=== PATIENT | male | born 1935 | race Caucasian/White ===

== ENCOUNTER 2019-01-28 11:13 | Inpatient (IN) | payer MEDICARE ==
[~2019-01-28] VITALS: Ht 182.9 cm; Wt 106.2 kg
[2019-01-28] VITALS (26 sets, daily range): BP systolic 99–185; BP diastolic 48–90
--- NOTE | ~2019-01-28 | TEE ---
PATIENT:JACI GOMEZ MEDICAL RECORD: [id number] LOCATION:[place] [address] AGE OF PATIENT: 83 ADMISSION DATE: 01/28/19 SEX: M REFERRING PHYSICIAN: INTERPRETING PHYSICIAN: HARLEEN BAZAN MD TRANSESOPHAGEAL ECHOCARDIOGRAM Date: 01/29/19 SHANTHI CHARGE Y INDICATIONS: MR PREMEDICATIONS: PATIENT'S RESPONSE PROCEDURE DOPPLER MEASUREMENTS: LVIT LA PA 100 RA LVOT 121 RVOT 71 Asc. Ao 166 AV Gradient Peak 11.1 AV Mean 5.3 AV Area 2.4 MV Gradient Peak 3.8 MV Mean 2.2 MV Area INTERPRETATION: Doppler: 2-D: COLOR FLOW DOPPLER NORMAL SALINE STUDY: MISCELLANOUS: DIAGNOSIS: PLAN: Farm Equipment Operator:Jonatan Terrell Almond Blancher: Nishant VALDES COMMENTS: DATE OF SERVICE: FINDINGS: 1. Left ventricular chamber size is within normal limits. Left ventricular systolic function is normal. Overall ejection fraction estimated at 55% to 60%. 2. Left atrium, right atrium and right ventricular chamber sizes are within normal limits. 3. Valvular structures have normal structure and motion. 4. Doppler interrogation reveals mild mitral regurgitation, no other valvular TRANSESOPHAGEAL ECHOCARDIOGRAM REPORT [id number] JACI GOMEZ insufficiency or stenosis. 5. No evidence of pericardial effusion or left ventricular thrombus. TRANSINT:[id number] Voice Confirmation ID: [id number] DOCUMENT ID: [id number] HARLEEN BAZAN MD CC: [id number] DICTATION DATE: 01/30/19 1448 MANAGER REGISTRATION: 01/30/19 2348 DIS IN 01/30/19 [place] [id number] [place] [id number]
[2019-01-28] MEDS ORDERED: HYDROCODON-ACE1 EAC7 PO (11:30)
--- NOTE | 2019-01-28 12:48 | NUR ---
PT BACK TO ED NOW, PT WAS TAKEN TO MEDICAL IMAGING FOR ORDERED XRAYS.
--- NOTE | 2019-01-28 13:42 | NUR ---
PT LEAVING THE ED VIA STRETCHER FOR MEDICAL IMAGING DEPT.
[2019-01-28 13:48] LABS: BASOPHILS 1.2 % (0-2); EOSINOPHILS 5.4 % (0-7); HEMATOCRIT 45.2 % (42.0-54.0); HEMOGLOBIN 15.9 g/dL (13.5-17.5); IMMATURE GRANULOCYTES 0.3 % (0-5); LYMPHOCYTES 41.4 % (15-50); MCH 36.3 pg (26.0-34.0); MCHC 35.2 g/dL (31.0-37.0); MCV 103.2 fL (80.0-100.0); MEAN PLATELET VOLUME 9.7 fL (7.4-10.4); MONOCYTES 13.5 % (2-11); NEUTROPHILS 38.2 % (40-80); PLATELET COUNT 251 10x3/uL (130-400); RBC 4.38 10x6/uL (4.20-6.10); WBC 9.9 10x3/uL (4.8-10.8)
[2019-01-28 14:10] LABS: APTT 27.5 SECONDS (22.8-39.4); INR 1.07 (0.85-1.17); PROTIME 13.4 SECONDS (11.6-15.0)
[2019-01-28 14:15] LABS: ALBUMIN 3.6 g/dL (3.4-5.0); ALKALINE PHOSPHATASE 70 U/L (46-116); ALT (SGPT) 22 U/L (10-68); BILIRUBIN - TOTAL 1.33 mg/dL (0.2-1.3); CALC OSMOLALITY 271 mosm/kg (275-300); CALCIUM 9.4 mg/dL (8.5-10.1); CARBON DIOXIDE 25.3 mmol/L (21.0-32.0); CHLORIDE - SERUM 100 mmol/L (98-107); GLUCOSE 89 mg/dL (74-106); POTASSIUM - SERUM 4.5 mmol/L (3.5-5.1); PROTEIN - SERUM 8.2 g/dL (6.4-8.2); SODIUM 136 mmol/L (136-145); UREA NITROGEN 16 mg/dL (7-18); eGFR NON AFRICAN AMERICAN 76 mL/min (90-120)
[2019-01-28 16:12] LABS: APPEARANCE CLEAR (CLEAR); BILIRUBIN NEGATIVE (NEGATIVE); COLOR YELLOW (YELLOW); GLUCOSE NEGATIVE (NEGATIVE); KETONE NEGATIVE (NEGATIVE); NITRITE NEGATIVE (NEGATIVE); PROTEIN NEGATIVE (NEGATIVE); SPECIFIC GRAVITY 1.015 (1.005-1.020); UROBILINOGEN NORMAL (NORMAL)
--- NOTE | 2019-01-28 18:33 | NUR ---
NITROGLYCERIN INITIATED AT THIS TIME PER ORDERS.
--- NOTE | 2019-01-28 18:41 | NUR ---
PT BP 170'S. PRIMARY WAS CALLED, DEFERRED TO DR SANCHEZ. DR SANCHEZ GAVE ORDER FOR NITRO TITRATE BP UNDER 140. AND PO LOPRESSOR 25MG Q12H.
--- NOTE | 2019-01-28 19:25 | NUR ---
PT RECEIVED WITH EYES OPEN WATCHING TV. NO S/S OF DISTRESS. RECEIVING NITRO AT 60MCG/MIN WITH SBP >140 AND TRENDING DOWN. PT COMPLAINS OF BLOOD PRESSURE CUFF AND EDUCATED WHY IT IS ON AND FREQUENCY OF CHECKS, PT STATES UNDERSTANDING. PT NOTED TO URINATED ON FLOOR, WITH AREA CLEANED PER PROTOCOL, URINAL PROVIDED. CALL LIGHT IN REACH. WILL CONTINUE TO OBSERVE.
--- NOTE | 2019-01-28 22:23 | NUR ---
CAROTID DOPPLER COMPLETED. PT REQUEST WATER WITH WATER GIVEN. WILL CONTINUE TO OBSERVE. CALL LIGHT IN REACH.
--- NOTE | 2019-01-28 23:45 | NUR ---
REASSESSMENT COMPLETED, SEE FLOW SHEET. WILL CONTINUE TO OBSERVE
[2019-01-29] VITALS (37 sets, daily range): BP systolic 89–141; BP diastolic 35–74; Ht 182.9 cm; Wt 106.2 kg
--- NOTE | 2019-01-29 04:05 | NUR ---
REASSESSMENT COMPLETED, SEE FLOW SHEET. PT WOKE CONFUSED TO PLACE, TIME, AND SITUATION. STATES REMBERING WHEN REMINDED, BUT STILL CONFUSED. PT THINKS HE WAS HAVING A DREAM BUT UNSURE. IN BED WITH EYES OPEN WATCHING TV. CALL LIGHT IN REACH. WILL CONTINUE TO OBSERVE.
[2019-01-29 04:41] LABS: BASOPHILS 0.1 % (0-2); EOSINOPHILS 0 % (0-7); HEMATOCRIT 41.8 % (42.0-54.0); HEMOGLOBIN 14.7 g/dL (13.5-17.5); IMMATURE GRANULOCYTES 0.1 % (0-5); LYMPHOCYTES 17.2 % (15-50); MCH 35.8 pg (26.0-34.0); MCHC 35.2 g/dL (31.0-37.0); MCV 101.7 fL (80.0-100.0); MEAN PLATELET VOLUME 9.9 fL (7.4-10.4); MONOCYTES 4.3 % (2-11); NEUTROPHILS 78.3 % (40-80); PLATELET COUNT 279 10x3/uL (130-400); RBC 4.11 10x6/uL (4.20-6.10); RDW 12.8 % (11.5-14.5); WBC 9.5 10x3/uL (4.8-10.8)
[2019-01-29 04:53] LABS: ALBUMIN 3.2 g/dL (3.4-5.0); ANION GAP 12.8 mmol/L (8-16); BILIRUBIN - TOTAL 0.97 mg/dL (0.2-1.3); CALCIUM 9.4 mg/dL (8.5-10.1); CARBON DIOXIDE 25.5 mmol/L (21.0-32.0); CREATININE - SERUM 1.1 mg/dL (0.6-1.3); POTASSIUM - SERUM 4.3 mmol/L (3.5-5.1); PROTEIN - SERUM 7.7 g/dL (6.4-8.2)
--- NOTE | 2019-01-29 06:40 | NUR ---
CHG BATH GIVEN, TOLERATED WELL. WATCHING TV. NO NEEDS OR CONCERNS NOTED. CALL LIGHT IN REACH. WILL CONTINUE TO OBSERVE
--- NOTE | 2019-01-29 07:00 | NUR ---
SHIFT REPORT RECEIVED. PT RESTING COMFORTABLY IN BED. ON ROOM AIR. 18G PIV ON R-WRIST SALINE LOC. DENIES PAIN AT THIS TIME. COMPLETE ASSESSMENT CHARTED IN FLOWSHEET. WILL CONTINUE TO MONITOR.
--- NOTE | 2019-01-29 08:40 | NUR ---
CONSENT FORMS SIGNED FOR SCHEDULED PROCEDURE. SPOUSE AND DAUGHTER AT BEDSIDE. CONSENT FORMS PLACED IN CHART.
--- NOTE | 2019-01-29 09:30 | NUR ---
DR. NASSAR AT BEDSIDE. RENY PAULINO WITH CARDIOLOGY CAME TO SEE PATIENT. SHE SAID SHE WILL BE BACK LATER TODAY.
[2019-01-29 09:36] LABS: INR 1.08 (0.85-1.17); PROTIME 13.5 SECONDS (11.6-15.0)
--- NOTE | 2019-01-29 10:11 | NUR ---
PREOP MEDS GIVEN. PT RESTING COMFORTABLY. FAMILY AT BEDSIDE.
--- NOTE | 2019-01-29 11:00 | NUR ---
PT TRANSPORTED TO OR AT THIS TIME BY HOSPITAL STAFF. SPOUSE AND DAUGHTER IN WAITING ROOM.
--- NOTE | 2019-01-29 15:17 | NUR ---
PT ARRIVED TO UNIT AROUND 1453 FROM OR. PT WAS AGITATED AND CONFUSED. NURSING STAFF ATTEMPTED TO REDIRECT. IN PROCESS OF GETTING PT TO CALM DOWN, A-LINE WAS PULLED OUT. DR. SANCHEZ ORDER TO TITRATE DRIPS BY BLOOD PRESSURE CUFF READINGS. CURRENTLY HAS RIJ WITH PLASMOLYTE AT 100ML/HR, CLEVIPREX AT 4MG/HR, NITROGLYCERIN AT 33.33MCG/MIN. CURRENTLY ON 14L OF 02 VIA SIMPLE MASK. RIGHT GROIN DRESSING CDI. NO HEMATOMA OR BLEEDING NOTED. LEFT GROIN ANGIO SEAL IN PLACE. DRESSING CDI NO BLEEDING OR HEMATOMA NOTED. DOTY IN PLACE WITH YELLOW URINE NOTED. WILL CONTINUE TO MONITOR.
--- NOTE | 2019-01-29 17:18 | NUR ---
DANGLED ON SIDE OF BED FOR ABOUT 10MIN. TOLERATED WELL. NO BLEEDING OR HEMATOMAS NOTED ON RIGHT AND LEFT GROIN. DRESSINGS C/D/I. O2SAT 100% ON 2L. TURNED OXYGEN OFF AT THIS TIME. PULLS BETWEEN [phone] ON INSENTIVE SPIROMETER. WILL CONTINUE TO MONITOR.
--- NOTE | 2019-01-29 18:14 | NUR ---
UPDATED DR. SANCHEZ ON PT PROGRESS. ORDERED TO DC LOPRESSOR 25MG. ADDED LOPRESSOR 12.5 BID.
--- NOTE | 2019-01-29 19:40 | NUR ---
REPORT REC'D AND CARE ASSUMED, PT RESTING IN BED WATCHING TV, PT ON ROOM AIR , O2 SAT 97%, PT REQUESTING BP CUFF BE REPOSITIONED, CUFF READJUSTED FOR COMFORT, RIJ CVL DRSG CDI WITH PLASMALYTE @ 100CC/HR, NITROGLYCERIN, AND CLEVIPREX ON HOLD, BILAT GROIN DRSGS CDI, NO BLEEDING OR HEMATOMA NOTED, PT DENIES PAIN AT THIS TIME, CRITICORE DOTY PATENT DRAINING YELLOW URINE, BILAT TEDS AND SCDS ON, PPP, SR UP X 2, CALL LIGHT IN REACH, PT DENIES NEEDS.
--- NOTE | 2019-01-29 20:45 | NUR ---
EVENING MEDS GIVEN, PT STATES " I DON'T TAKE ANY MEDICATION", EXPLAINED TO PT THIS IS WHAT THE MD HAD ORDERED FOR HIM TO TAKE AND EXPLAINED EACH MED TO PATIENT, PT COOPERATIVE AND TOOK MEDS, PT ASSISTED TO POSITION FOR COMFORT, PT ASKING ABOUT TV CHANNELS, LISTING OF CHANNELS PROVIDED, NO VISITORS IN AT THIS TIME.
--- NOTE | 2019-01-29 23:00 | NUR ---
REASSESSMENT COMPLETED, PT CONCERNED ABOUT DISCHARGE DATE, STATES " I HAVE TO BE OUT OF HERE BY SATURDAY DUE TO MY NEEDING SOMEONE TO TAKE CARE OF HER", EXPLAINED TO PT THAT HE SHOULD DISCUSS THAT WITH THE MD IN THE MORNING, BILAT JEREMIAHIN DRSGS CDI, NO BLEEDING OR HEMATOMA, PT DENIES PAIN OR OTHER NEEDS, BP STABLE, WILL MONITOR FOR CHANGES.
[2019-01-30] VITALS (12 sets, daily range): BP systolic 97–152; BP diastolic 40–100
--- NOTE | 2019-01-30 | NUR ---
ROUTINE MEDS GIVEN, PT UNABLE TO SLEEP, CONCERNED ABOUT LEAVING TO GO HOME TO TAKE CARE OF , STATES " I WILL GO HOME TOMORROW EVENING", EXPLAINED TO PT THAT HE WOULD HAVE TO DISCUSS THAT WITH HIS PHYSICIAN. PT DENIES PAIN, COMPLAINS ABOUT EXCESS EQUIPMENT AND MONITOR BEEPING, TONES TURNED DOWN FOR PT COMFORT, ENCOURAGED PT TO TRY AND GET SOME REST, WILL CONT TO MONITOR FOR CHANGES.
--- NOTE | 2019-01-30 02:00 | NUR ---
NO CHANGES IN STATUS AT THIS TIME
--- NOTE | 2019-01-30 03:15 | NUR ---
REASSESSMENT COMPLETED, PT REMAINS AWAKE, EACH TIME THE MONITOR FOR IV PUMP ALARMS PT LOOKING FOR A "TELEPHONE", EXPLAINED TO PT IT WAS THE MONITORING EQUIPMENT AND NOT A TELEPHONE, PT VERBALIZES UNDERSTANDING, BED IN LOW POSITION, CALL LIGHT IN REACH.
--- NOTE | 2019-01-30 05:00 | NUR ---
PT ATTEMPTING TO GET OOB, LOOKING FOR HIS CLOTHES AND CELL PHONE, EXPLAINED TO PT THAT HIS PROBABLY HAS THEM, PT CONCERNED ABOUT CLOTHING AND GETTING A RIDE HOME TO CHECK ON HIS , ARGUMENTATIVE AT THIS TIME, SR UP X 2.
[2019-01-30 06:13] LABS: BASOPHILS 0.1 % (0-2); EOSINOPHILS 0 % (0-7); HEMATOCRIT 34.2 % (42.0-54.0); IMMATURE GRANULOCYTES 0.3 % (0-5); LYMPHOCYTES 11.8 % (15-50); MCH 34.8 pg (26.0-34.0); MCHC 33.9 g/dL (31.0-37.0); MCV 102.7 fL (80.0-100.0); MEAN PLATELET VOLUME 9.8 fL (7.4-10.4); NEUTROPHILS 79.8 % (40-80); RBC 3.33 10x6/uL (4.20-6.10); RDW 13.3 % (11.5-14.5)
[2019-01-30 06:44] LABS: ALBUMIN 2.9 g/dL (3.4-5.0); ANION GAP 12.6 mmol/L (8-16); BILIRUBIN - TOTAL 0.91 mg/dL (0.2-1.3); CALCIUM 8.3 mg/dL (8.5-10.1); CARBON DIOXIDE 25.7 mmol/L (21.0-32.0); CREATININE - SERUM 1.2 mg/dL (0.6-1.3); MAGNESIUM - SERUM 2.3 mg/dL (1.8-2.4); PHOSPHOROUS 4.1 mg/dL (2.5-4.9); POTASSIUM - SERUM 4.3 mmol/L (3.5-5.1); PROTEIN - SERUM 6.3 g/dL (6.4-8.2)
[2019-01-30 07:02] LABS: HEMOGLOBIN 11.6 g/dL (13.5-17.5); PLATELET COUNT 194 10x3/uL (130-400); WBC 18.7 10x3/uL (4.8-10.8)
--- NOTE | 2019-01-30 10:07 | NUR ---
DOTY CATHETER DC'D PER DR. SANCHEZ. PT UP IN CHAIR. SPOUSE AT BEDSIDE.
--- NOTE | 2019-01-30 10:13 | NUR ---
DR. SANCHEZ CONCERN ABOUT GIVING PT ANOTHER LITER OF FLUID. DR. JEAN-BAPTISTE NOTIFIED. HE DISCONTINUED BANANA BAG AND ORDERED FOLATE 1MG DIALY AND THIAMINE 100MG DAILY.
[2019-01-30] MEDS ORDERED: LOPRESSOR25 MG PO (12:58)
--- NOTE | 2019-01-30 14:24 | NUR ---
UNABLE TO SET UP APPOINTMENT WITH DR. MARTINEZ. PER WITH DR. SANCHEZ NOTIFIED. OKAY TO SENT PT HOME. WILL HAVE CALL AND MAKE APPOINTMENT ON SATURDAY.
--- NOTE | 2019-01-30 14:35 | NUR ---
RIJ CVL DC'D AT THIS TIME PER ORDERS. PT RESTING COMFORTABLY IN BED. GETTING READY TO BE DISCHARGED.
--- NOTE | 2019-01-30 15:06 | NUR ---
DISCHARGE INSTRUCTIONS GIVEN TO PATIENT AND SPOUSE. APPOINTMENT WITH DR. JEAN-BAPTISTE ON 04/07/19 AT 4PM. PFT WITH 6MIN WALK APPT ON 03/30/19 AT 1230. PT WILL CALL DR. MARTINEZ'S OFFICE ON SATURDAY TO SET UP FOLLOW UP APPOINTMENT. WHEELED PT OUT TO PERSONAL VEHICLE. PERSONAL BELONGINGS SENT WITH PT INCLUDING CELL PHONE.
--- NOTE | 2019-01-30 20:16 | MORECARE ---
CASE MANAGEMENT DISCHARGE SUMMARY PATIENT: JACI GOMEZ UNIT: [id number] ADM DATE: 01/28/19 AGE: 83 : 36 SEX: M ROOM/BED: D.[facility] AUTHOR: BETHANY CANTU PHYSICIAN: REFERRING PHYSICIAN: FRANCINE SANCHEZ MD DATE OF SERVICE: 01/30/19 Discharge Plan Patient Name: JACI GOMEZ [facility] [facility] 1935 Planned Disposition: Home Anticipated Discharge Date: Discharge Date: 01/30/2019 Expected LOS: Initial Reviewer: [email or web address] Initial Review Date: 01/30/2019 Generated: 01/30/19 9:16 pm DCPIA - Discharge Planning Initial Assessment Updated by [email or web address]: [place] Junior on 01/30/19 8:14 pm * Is the patient Alert and Oriented? Yes * How many steps to enter\exit or inside your home? * PCP WILBERTO * Pharmacy [facility] * Preadmission Environment Home with Family * ADLs Independent * Other Equipment CANE, WALKER, CRUTCHES * List name and contact numbers for known caregivers / representatives who currently or will assist patient after discharge: WILLIAM GOMEZ - SPOUSE - [phone] * Verbal permission to speak to the caregivers and representatives has been obtained from the patient. Yes * Community resources currently utilized None * Additional services required to return to the preadmission environment? No * Can the patient safely return to the preadmission environment? Yes * Has this patient been hospitalized within the prior 30 days at any hospital? No Patient Name: JACI GOMEZ Page [phone] at 2016 All edits/amendments must be made on the electronic document DICTATION DATE: 01/30/192015 HR OPERATIONS ADVISOR: [place] 01/30/19 2016 RPT#: [id number] DC DATE:01/30/19 STATUS: DIS IN [facility] [address] [place] [address] END OF REPORT
--- NOTE | 2019-01-30 20:24 | MORECARE ---
CASE MANAGEMENT DISCHARGE SUMMARY PATIENT: JACI GOMEZ UNIT: [id number] ADM DATE: 01/28/19 AGE: 83 : 36 SEX: M ROOM/BED: D[facility] AUTHOR: PEPE,DOC PHYSICIAN: REFERRING PHYSICIAN: FRANCINE SANCHEZ MD DATE OF SERVICE: 01/30/19 Discharge Plan Patient Name: JACI GOMEZ Facility: [facility]:[place] : 1935 Planned Disposition: Home Anticipated Discharge Date: Discharge Date: 01/30/2019 Expected LOS: Initial Reviewer: [email or web address] Initial Review Date: 01/30/2019 Generated: 01/30/19 9:23 pm DCP- Discharge Planning Updated by [email or web address]: [place] Junior on 01/30/19 7:[address] LATE ENTRY 01/30/19 1300 Patient Name: JACI GOMEZ Admission Status: ER Accout number: [id number] Admission Date: 01-28-2019 : 1935 Admission Diagnosis:ABDOMINAL AORTIC ANEURYSM, WITHOUT RUPTURE Attending: FRANCINE SANCHEZ Current LOS: 2 Anticipated DC Date: Planned Disposition: Home Primary Insurance: MEDICARE A & B Discharge Planning Comments: CM met with patient and spouse (WILLIAM) at bedside after explaining CM role and obtaining verbal consent. Patient lives at home with his and plans to return there upon discharge. Patient feels this would be a safe discharge. CM discussed availability / needs of home health and medical equipment. CM was notified that patient was needing nebulizer and updrafts. Patient refused nebulizer and updrafts and signed DAVONTE. Patient denies any discharge needs at this time. Patient states he will have his friend drive them home upon discharge. CM will continue to follow and assist as needed with discharge planning / needs. Professor Of Business: [place] Junior DCPIA - Discharge Planning Initial Assessment Updated by [email or web address]: [place] Junior on 01/30/19 8:14 pm * Is the patient Alert and Oriented? Yes * How many steps to enter\exit or inside your home? * PCP WILBERTO * Pharmacy [facility] * Preadmission Environment Home with Family * ADLs Independent * Other Equipment CANE, WALKER, CRUTCHES * List name and contact numbers for known caregivers / representatives who currently or will assist patient after discharge: WILLIAM GOMEZ - SPOUSE - [phone] * Verbal permission to speak to the caregivers and representatives has been obtained from the patient. Yes * Community resources currently utilized None * Additional services required to return to the preadmission environment? No * Can the patient safely return to the preadmission environment? Yes * Has this patient been hospitalized within the prior 30 days at any hospital? No Coverage Notice Reviewer: [id number] [place] Junior Notice Issued Date-Time: 01/30/2019 15:30 Notice Type: Patient Choice Letter Notice Delivered To: Patient Relationship to Patient: Self Seismic Survey Assistant Name: Delivery Method: HAND - Hand Delivered Neelam Days: Prior Verbal Notification: Recipient Understood Notice: Yes Recipient Signature: Yes Med Rec Note Co-signed by Attending: Coverage Notice Comment: Last DP export: 01/30/19 7:16 pm Patient Name: JACI GOMEZ Page [phone] at 2023 All edits/amendments must be made on the electronic document DICTATION DATE: 01/30/192022 SERVICE LINE BUS CLEANER: [place] 01/30/192022 RPT#: [id number] DC DATE:01/30/19 STATUS: DIS IN [facility] [address] [place] [address] END OF REPORT
--- NOTE | 2019-01-31 09:26 | OP ---
PATIENT NAME: JACI GOMEZ MEDICAL RECORD: [id number] :37 LOCATION:[place]CV04 ADMISSION DATE:01/28/19 SURGEON: FRANCINE SANCHEZ MD DATE OF OPERATION: 01/29/2019 BACTERIOLOGY PROFESSOR'S NOTE The sales assistant displays on this case was Dr. Agusto Lange. He managed the left femoral cannula including left iliac angioplasty, snaring the contralateral wire and deploying the left limb of the graft. TRANSINT:[id number] Voice Confirmation ID: [id number] DOCUMENT ID: [id number] FRANCINE SANCHEZ MD at 0926 CC: [id number] DICTATION DATE: 01/30/19 1138 CLEANER SIGNS: 01/30/19 1203 DIS IN 01/30/19 [place] [address] [place] [address]
--- NOTE | 2019-01-31 09:26 | OP ---
PATIENT NAME: JACI GOMEZ MEDICAL RECORD: [id number] :37 LOCATION:[place].CV[facility] ADMISSION DATE:01/28/19 SURGEON: DENZEL SANCHEZ MD DATE OF OPERATION: 01/29/2019 SURGEON: Denzel Sanchez MD ADVERTISING COPY WRITER: RAE Lange MD OPERATION PERFORMED: 1. Insertion of bifurcated aortic endograft. 2. Insertion of suprarenal extension. 3. Bilateral iliac angioplasty. 4. Aortogram times 3. 5. Right iliac angiogram. 6. Aortic angioplasty. 7. Right iliac angioplasty. 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 ANESTHESIA: General endotracheal anesthesia. ESTIMATED BLOOD LOSS: 100 cc. COMPLICATIONS: None. SPECIMENS: None. CONDITION: Stable. DISPOSITION: ICU. OPERATIVE FINDINGS: 1. Percutaneous access, angiogram for anatomy and bilateral iliac kissing balloons 7 mm on the left and 8 on the right. 2. Deployment of a 28 x 120 with 40 limbs bifurcated aortic endograft. 3. A 34 x 100 suprarenal extension and a moderately angulated neck with good seal and no evidence of endoleak, Coda balloon angioplasty and then right iliac angioplasty. Percutaneous closure and iliac angiogram with no evidence of obstruction. Doppler bilateral dorsalis pedis on the table. INDICATION: Lumbar pain and a 6.5 cm abdominal aortic aneurysm. OPERATIVE SUMMARY IN DETAIL: The patient was brought to the operating suite where general anesthesia was obtained, the patient was prepped and draped. Percutaneous bilateral femoral access was obtained with ultrasound guidance slightly higher on the right due to irregular calcium from the medial aspect of the femoral artery on the right side. A 6-Lebanese sheath was placed. Then 2 ProGlides were redeployed and a 7-Lebanese sheath was placed and then a 8-Lebanese sheath on the right and a 7-Lebanese sheath was placed on the left. Heparin was given. Exchange catheter was used to place a stiff wire on the right and on the OPERATIVE REPORT [id number] JACI GOMEZ left over the guidewire, a 7 x 40 balloon was deployed twice and on the right 8 x 40. Then the snare catheter was placed on the left. AFX introducer placed on the right main body introduced, contralateral wire grasped, brought out through the left and the graft was carefully seated on the bifurcation. The main body was deployed. The left limb was deployed. The inner core was pulled back and the right limb was deployed and then the sheath was placed above the renal arteries. The suprarenal extension was placed and an angiogram was performed via the pigtail catheter on the left. The suprarenal extension was deployed. The pigtail was reformed and placed back from between the units in to the suprarenal area. Angioplasty performed of the aorta and then a 12 x 40 balloon used on the right iliac limb. Final angiogram with good seal and no endoleak, no iliac obstruction. The ProGlides were then tied down on the right, pigtail was pulled back. Right iliac angiogram was performed and on the left, an 8-Lebanese Angio-Seal was used for hemostasis. The patient was taken to the ICU in stable condition. TRANSINT:[id number] Voice Confirmation ID: [id number] DOCUMENT ID: [id number] DENZEL SANCHEZ MD at 0926 CC: CAMILA BUENO M.D., TIERRA JEAN-BAPTISTE MD and RANGEL LADD [id number] DICTATION DATE: 01/30/19 1137 RICE FARMWORKER: 01/30/19 1202 DIS IN 01/30/[address] [address]
[2019-01-31] MEDS ORDERED: CHRONULAC30 ML PO (13:46)
== END 2019-01-30 15:28 | disposition home or self-care (01) | DRG 269 ==
LOC: D.ER 11:13 → D.CVICU 15:15
PROVIDERS: Anesthesiology; Emergency Medicine; Internal Medicine Cardiovascular Disease; Internal Medicine Pulmonary Disease; ADMIT Thoracic Surgery (Cardiothoracic Vascular Surgery); ATTEND Thoracic Surgery (Cardiothoracic Vascular Surgery)
PROC: 04V03DZ Restriction of Abdominal Aorta with Intraluminal Device, Percutaneous Approach (ICD-10-PCS; principal; 2019-01-29 11:00)
PROC: B24BZZ4 Ultrasonography of Heart with Aorta, Transesophageal (ICD-10-PCS; 2019-01-29 11:00)
DX: I71.4 Abdominal aortic aneurysm, without rupture (principal); F17.203 Nicotine dependence unspecified, with withdrawal; Z72.89 Other problems related to lifestyle; G89.29 Other chronic pain; H91.90 Unspecified hearing loss, unspecified ear; M25.462 Effusion, left knee; J44.9 Chronic obstructive pulmonary disease, unspecified; K21.9 Gastro-esophageal reflux disease without esophagitis

== ENCOUNTER 2019-01-31 12:21 | Emergency (ER) | payer MEDICARE ==
[~2019-01-31] VITALS: Ht 182.9 cm; Wt 107.7 kg
[~2019-01-31 12:21] MED LIST: HYDROCODON-ACE1 EAC7 PO; LOPRESSOR25 MG PO
[2019-01-31 12:23] VITALS: Ht 182.9 cm; Wt 107.7 kg
[2019-01-31] MEDS ORDERED: CHRONULAC30 ML PO (13:46)
[2019-01-31 14:15] VITALS: BP 142/72
== END 2019-01-31 14:16 | disposition home or self-care (01) ==
LOC: D.ER 12:21
DX: K59.00 Constipation, unspecified (principal)

== ENCOUNTER → 2019-02-20 10:15 | Outpatient (CLI) | payer MEDICARE ==
[2019-01-31 12:23] VITALS: BMI 32.2
[~2019-02-20 10:15] MED LIST changes: +CHRONULAC30 ML PO
== END | disposition home or self-care (01) ==
LOC: D.CT 10:00
PROVIDERS: ATTEND Thoracic Surgery (Cardiothoracic Vascular Surgery)
DX: I71.4 Abdominal aortic aneurysm, without rupture (principal)

== ENCOUNTER → 2019-08-28 10:09 | Outpatient (CLI) | payer MEDICARE ==
[2019-01-31 12:23] VITALS: BMI 32.2
== END | disposition home or self-care (01) ==
LOC: D.CT 10:09
PROVIDERS: ATTEND Orthopaedic Surgery
DX: I71.4 Abdominal aortic aneurysm, without rupture (principal); I73.9 Peripheral vascular disease, unspecified